=== PATIENT | male | born 1985 | race Caucasian/White ===

== ENCOUNTER 2022-02-08 23:06 | Emergency (ER) | payer SELFPAY ==
[~2022-02-08] VITALS: Ht 170.2 cm; Wt 77.1 kg
--- NOTE | 2022-02-08 23:08 | NUR ---
PT [facility] BED 7
[2022-02-08 23:09] VITALS: BP 160/86
[2022-02-08] MEDS ORDERED: MORPHINE SULFATE 4 MG/ML SYR IVP ONE (23:15)
--- NOTE | 2022-02-08 23:16 | NUR ---
37 Y/O MALE BIBA FROM HOME, C/O LEFT FLANK PAIN 1800. PT STATES HE HAS 7/10 PAIN. 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 PT STATES HE DOES NOT TAKE ANY MEDICATION FOR PAIN AT HOME. A/OX4, GCS-15;UNLABORED BREATHING, SPEAKING IN FULL SENTENCES; AMBULATORY; SKINS PINK, WARM, AND DRY. HX: KIDNEY TUMOR NKA NO MEDS
[2022-02-08] MEDS ORDERED: fentaNYL citrate 0.05 MG/ML VIAL IVP ONE (23:45)
[2022-02-09] MEDS ORDERED: fentaNYL citrate 0.05 MG/ML VIAL IVP ONE (00:30)
--- NOTE | 2022-02-09 00:52 | NUR ---
ER MD AT BEDSIDE EXAMINING PT
[2022-02-09] MEDS ORDERED: HYDROmorphone PFS 2 MG/ML SYR IVP ONE (01:00)
--- NOTE | 2022-02-09 01:15 | NUR ---
XRAY AT BEDSIDE
--- NOTE | 2022-02-09 01:22 | NUR ---
[employer] OPERATOR AT BEDSIDE
--- NOTE | 2022-02-09 01:26 | NUR ---
COVID/MARLA SWAB COLLECTED AND HANDED TO NATURAL GAS ENGINEER
--- NOTE | 2022-02-09 01:30 | NUR ---
PT IS NOW SLEEPING AFTER ADMINISTRATION OF PAIN MEDICATION
[2022-02-09 01:34] LABS: BASOPHILS % (AUTO) 0.2 % (0.0-2.0); EOSINOPHILS # (AUTO) 0.1 K/uL (0-0.4); EOSINOPHILS % (AUTO) 1.1 % (0.0-4.0); HEMATOCRIT 41.5 % (36-52); LYMPHOCYTES # (AUTO) 1.9 K/uL (2.0-11.5); LYMPHOCYTES % (AUTO) 16.6 % (20.5-51.1); MEAN CORPUSCULAR HEMOGLOBIN 28 pg (27-31); MEAN CORPUSCULAR HGB CONC 34 g/dL (33-37); MONOCYTES # (AUTO) 1.5 K/uL (0.8-1.0); MONOCYTES % (AUTO) 12.4 % (1.7-9.3); NEUTROPHILS # (AUTO) 8.2 K/uL (1.8-7.7); NEUTROPHILS % (AUTO) 69.7 % (42.2-75.2); PLATELET COUNT (AUTO) 221 K/uL (140-450); RED CELL DISTRIBUTION WIDTH 12.8 % (11.6-13.7); WHITE BLOOD COUNT (AUTO) 11.7 K/uL (4.8-10.8)
--- NOTE | 2022-02-09 01:40 | NUR ---
PT FAMILY CALLED ASKING ABOUT PT CONDITION. ATTEMPTED, UNSUCCESSFULLY, TO RECONTACT FAMILY ABOUT PT CONDITION, LEFT MESSAGE WITH COUSIN, INOCENCIO. [phone]
[2022-02-09 02:04] LABS: ALBUMIN 4.4 g/dL (3.4-5.0); ANION GAP 12.5 (8-16); CARBON DIOXIDE 27.1 mmol/L (21-32); CREATININE 1.2 mg/dL (0.6-1.3); POTASSIUM 3.6 mmol/L (3.5-5.1); TOTAL BILIRUBIN 0.8 mg/dL (0.0-1.0)
[2022-02-09] MEDS ORDERED: HYDROmorphone 1 MG/ML AMP IVP ONE (03:40)
--- NOTE | 2022-02-09 03:45 | NUR ---
PT NOW AWAKE COMPLAINING OF PAIN
--- NOTE | 2022-02-09 04:10 | NUR ---
ERMD AT BEDSIDE TALKING WITH PT
[2022-02-09] MEDS ORDERED: ONDA8TAB87 PO (04:23)
[2022-02-09] MEDS ORDERED: ACET-8386 PO (04:23)
[2022-02-09 06:40] VITALS: BP 130/74
--- NOTE | 2022-02-09 06:47 | NUR ---
Patient discharged with v/s stable. Written and verbal after care instructions given and explained. Patient alert, oriented and verbalized understanding of instructions. Ambulatory with steady gait. All questions addressed prior to discharge. ID band removed. Patient advised to follow up with PMD. Rx of ZOFRAN AND NORCO 5-325 given. Patient educated on indication of medication including possible reaction and side effects. Opportunity to ask questions provided and answered. VSS, A/OX4, UNLABORED BREATHING, AMBULATORY, AND CALM DEMEANOR.
== END 2022-02-09 06:47 | disposition home or self-care (01) ==
LOC: MED 23:06
DX: R10.9 Unspecified abdominal pain (principal); Z20.822 Contact with and (suspected) exposure to COVID-19; D49.519 Neoplasm of unspecified behavior of unspecified kidney; Z90.49 Acquired absence of other specified parts of digestive tract
CPT/HCPCS: 36415; 71045; 80053; 85025; 87426; 96374; 96375; 96376; 99284; J1170; J2270; J3010; Q0092

== ENCOUNTER 2022-05-24 20:35 | Emergency (ER) | payer OTHER ==
[~2022-05-24] VITALS: Ht 171.4 cm; Wt 73.5 kg
[~2022-05-24 20:35] MED LIST: ACET-8386 PO; ONDA8TAB87 PO
[2022-05-24 20:55] VITALS: BP 116/84
--- NOTE | 2022-05-24 21:04 | NUR ---
PATIENT AMBULATED TO LOBBY IN STABLE CONDITION
--- NOTE | 2022-05-24 21:38 | NUR ---
pt to bed 11
--- NOTE | 2022-05-24 21:40 | NUR ---
PT AMBULATED TO ED 11, PT C/O CP AND RECTAL PAIN, HX- CANCER AND TAKES CHEMO, PT HAS BEEN CONSTIPATED. PT CALLED [facility] AND WAS INSTRUCTED TO GO TO ER. 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
--- NOTE | 2022-05-24 21:43 | NUR ---
EKG COMPLETE AND GIVEN TO DR PURCELL FOR EVALUATION
[2022-05-24 22:13] LABS: BASOPHILS % (AUTO) 0.3 % (0.0-2.0); EOSINOPHILS # (AUTO) 0.2 K/uL (0-0.4); EOSINOPHILS % (AUTO) 2.7 % (0.0-4.0); HEMATOCRIT 42.6 % (36-52); LYMPHOCYTES # (AUTO) 2.5 K/uL (2.0-11.5); LYMPHOCYTES % (AUTO) 42.2 % (20.5-51.1); MEAN CORPUSCULAR HEMOGLOBIN 28 pg (27-31); MEAN CORPUSCULAR HGB CONC 35 g/dL (33-37); MEAN CORPUSCULAR VOLUME 79.3 fL (80-94); MONOCYTES # (AUTO) 0.4 K/uL (0.8-1.0); MONOCYTES % (AUTO) 7.6 % (1.7-9.3); NEUTROPHILS # (AUTO) 2.8 K/uL (1.8-7.7); NEUTROPHILS % (AUTO) 47.2 % (42.2-75.2); PLATELET COUNT (AUTO) 148 K/uL (140-450); RED BLOOD CELL COUNT(AUTO) 5.37 MIL/uL (4.20-6.10); RED CELL DISTRIBUTION WIDTH 14.4 % (11.6-13.7); WHITE BLOOD COUNT (AUTO) 5.9 K/uL (4.8-10.8)
[2022-05-24 22:35] LABS: ALBUMIN 3.8 g/dL (3.4-5.0); ANION GAP 15.4 (8-16); CARBON DIOXIDE 24.5 mmol/L (21-32); CREATININE 1.2 mg/dL (0.6-1.3); POTASSIUM 3.9 mmol/L (3.5-5.1); TOTAL BILIRUBIN 0.6 mg/dL (0.0-1.0)
[2022-05-24 22:54] LABS: LIPASE 154 U/L (73-393)
[2022-05-24] MEDS ORDERED: MORPHINE SULFATE 4 MG/ML SYR IVP ONE (23:05)
[2022-05-24] MEDS ORDERED: ACET-8386 PO (23:27)
[2022-05-24] MEDS ORDERED: HYDR25SU91 RC (23:27)
[2022-05-25 00:11] VITALS: BP 124/65
--- NOTE | 2022-05-25 00:13 | NUR ---
Patient discharged with v/s stable. Written and verbal after care instructions given and explained. Patient alert, oriented and verbalized understanding of instructions. Wheel Chair Assisted with to car. All questions addressed prior to discharge. ID band removed. Patient advised to follow up with PMD. Rx SENT TO PHARMACY. Patient educated on indication of medication including possible reaction and side effects. Opportunity to ask questions provided and answered.
== END 2022-05-24 23:46 | disposition home or self-care (01) ==
LOC: MED 20:35
DX: K62.89 Other specified diseases of anus and rectum (principal); Z98.890 Other specified postprocedural states
CPT/HCPCS: 36415; 71045; 80053; 83690; 83880; 84484; 85025; 96374; 99285; J2270; Q0092

== ENCOUNTER 2023-03-21 07:34 | Emergency (ER) | payer OTHER ==
[~2023-03-21] VITALS: Ht 170.2 cm; Wt 67.1 kg
[~2023-03-21 07:34] MED LIST changes: -ACET-8386 PO; +ACET-8905 PO; +HYDR25SU91 RC
[2023-03-21 07:52] VITALS: BP 115/85; PULSE 65; RESP 16; TEMP 97.1; O2SAT 96
[2023-03-21] MEDS ORDERED: KETOROLAC 60 MG/2 ML VIAL IM ONE (08:15)
[2023-03-21] MEDS ORDERED: ACET-8905 PO (08:16)
[2023-03-21] MEDS ORDERED: IBUP-2213 PO (08:16)
[2023-03-21 08:31] VITALS: BP 112/78; PULSE 69; RESP 18; TEMP 97.1; O2SAT 98
== END 2023-03-21 08:28 | disposition home or self-care (01) ==
LOC: MED 07:34
DX: R07.89 Other chest pain (principal); Z85.528 Personal history of other malignant neoplasm of kidney; Z79.899 Other long term (current) drug therapy; Z98.890 Other specified postprocedural states
CPT/HCPCS: 93005; 96372; 99283; J1885

== ENCOUNTER 2023-10-01 05:55 | Emergency (ER) | payer OTHER ==
[~2023-10-01] VITALS: Ht 167.6 cm; Wt 64.4 kg
[~2023-10-01 05:55] MED LIST changes: +AMOX1TAB8 PO; +IBUP-2213 PO; +LENV18CA PO; +LOV80I SUBQ
[2023-10-01 06:00] VITALS: BP 135/89; PULSE 89; RESP 18; TEMP 98.4; O2SAT 98
[2023-10-01 06:22] VITALS: O2SAT 96
[2023-10-01 06:31] LABS: BASOPHILS % (AUTO) 0.5 % (0.0-2.0); EOSINOPHILS # (AUTO) 0.2 K/uL (0-0.4); EOSINOPHILS % (AUTO) 1.6 % (0.0-4.0); HEMATOCRIT 39.5 % (36-52); HEMOGLOBIN 13.7 g/dL (12.0-18.0); LYMPHOCYTES # (AUTO) 1.9 K/uL (2.0-11.5); LYMPHOCYTES % (AUTO) 19.5 % (20.5-51.1); MEAN CORPUSCULAR HEMOGLOBIN 29 pg (27-31); MEAN CORPUSCULAR HGB CONC 35 g/dL (33-37); MEAN CORPUSCULAR VOLUME 84.2 fL (80-94); MONOCYTES # (AUTO) 1.1 K/uL (0.8-1.0); MONOCYTES % (AUTO) 11.2 % (1.7-9.3); NEUTROPHILS # (AUTO) 6.5 K/uL (1.8-7.7); NEUTROPHILS % (AUTO) 67.2 % (42.2-75.2); PLATELET COUNT (AUTO) 249 K/uL (140-450); RED CELL DISTRIBUTION WIDTH 13.8 % (11.6-13.7); WHITE BLOOD COUNT (AUTO) 9.6 K/uL (4.8-10.8)
[2023-10-01 06:57] LABS: INR 0.97 (0.8-1.2); PARTIAL THROMBOPLASTIN TIME 26.7 secs (22-35.6); PROTHROMBIN TIME 10.2 secs (10.8-13.4)
[2023-10-01 07:04] LABS: LACTIC ACID 1.3 mmol/L (0.4-2.0)
[2023-10-01 07:09] LABS: ANION GAP 11.5 (8-16); CALCIUM 9.7 mg/dL (8.5-10.1); CARBON DIOXIDE 29.5 mmol/L (21-32); CREATININE 0.9 mg/dL (0.6-1.3)
[2023-10-01] MEDS: MORPHINE SULFATE 4 MG/ML SYR IVP ONE (07:10)
[2023-10-01 07:13] LABS: FLU A ANTIGEN negative (NEGATIVE); FLU B ANTIGEN NEGATIVE (NEGATIVE)
[2023-10-01 07:21] VITALS: O2SAT 96
[2023-10-01 08:06] LABS: ALANINE AMINOTRANSFERASE 33 U/L (12-78); ALBUMIN 3.2 g/dL (3.4-5.0); ALKALINE PHOSPHATASE 85 U/L (50-136); ASPARTATE AMINOTRANSFERASE 17 U/L (15-37); BILIRUBIN,DIRECT 0.1 mg/dL (0.0-0.3); TOTAL BILIRUBIN 0.3 mg/dL (0.0-1.0); TOTAL PROTEIN, SERUM 7.6 g/dL (6.4-8.2)
[2023-10-01] MEDS ORDERED: PROM118S5 PO (10:24)
[2023-10-01] MEDS ORDERED: LEVO750T75 PO (10:24)
[2023-10-01] MEDS ORDERED: ACET-8905 PO (10:24)
[2023-10-01 10:42] VITALS: BP 117/74; PULSE 76; RESP 18; TEMP 98; O2SAT 99
== END 2023-10-01 10:45 | disposition home or self-care (01) ==
LOC: MED 05:55
DX: J18.1 Lobar pneumonia, unspecified organism (principal); Z20.822 Contact with and (suspected) exposure to COVID-19; J45.909 Unspecified asthma, uncomplicated; Z85.53 Personal history of malignant neoplasm of renal pelvis; Z79.899 Other long term (current) drug therapy
CPT/HCPCS: 36415; 71045; 71250; 80048; 80076; 83605; 83880; 84484; 85025; 85610; 85730; 86886; 86900; 86901; 87040; 87426; 87804; 93005; 96374; 99285; J2270; Q0092